=== PATIENT | female | born 1975 | race African-American/Black ===

== ENCOUNTER 2016-10-29 10:46 | Inpatient (IN) | payer MEDICARE, MEDICAID ==
[~2016-10-29] VITALS: Ht 175.3 cm; Wt 111.1 kg
[~2016-10-29 10:46] MED LIST: GLAT20KI SC; Hctz PO; SACC250C PO
[2016-10-29] MEDS ORDERED: SODIUM CHLORIDE 0.9% 1,000 ML IVB ONE (11:01)
[2016-10-29] MEDS ORDERED: ONDANSETRON HCL 4 MG/2 ML VIAL IV ONE (11:15)
[2016-10-29] MEDS ORDERED: KETOROLAC TROMETH 30 MG/ML 1ML VIAL IV ONE (11:15)
[2016-10-29 11:27] LABS: Basophils # (auto) 0 uL; Basophils % (auto) 0.4 % (0.0-2.0); CONDITION Y; Eosinophils # (auto) 0.1 uL; Eosinophils % (auto) 1.3 % (0.0-7.0); Hematocrit 40.8 % (36.0-46.0); Hemoglobin 13.9 g/dL (12.2-16.2); Lymphocytes # (auto) 1.5 uL; Lymphocytes % (auto) 18.8 % (10.0-50.0); Mean Corpuscular Volume 88.4 fL (80.0-100.0); Mean Platelet Volume 8.5 fL (7.4-10.4); Monocytes # (auto) 0.2 uL; Monocytes % (auto) 2.9 % (0.0-12.0); Neutrophils # (auto) 6.1 uL; Neutrophils % (auto) 76.6 % (37.0-80.0); Platelet Count (auto) 294 10^3/uL (140-450); Red Cell Distribution Width 14.6 % (11.6-16.0)
[2016-10-29 11:54] LABS: Albumin 3.1 g/dL (3.4-5.0); BUN/Creatinine Ratio 13.2; Bilirubin, Total 0.3 mg/dL (0.2-1.0); Calcium 8.6 mg/dL (8.5-10.1); Potassium 3.8 mmol/L (3.5-5.1); Total Protein 7.2 g/dL (6.4-8.2)
[2016-10-29 11:59] LABS: Urine Bilirubin Negative (Negative); Urine Color Yellow (Yellow); Urine Glucose Normal (Normal); Urine Ketone Negative (Negative); Urine RBC 11 /hpf (0 - 4); Urine Squamous Epithelial Cell FEW /hpf (<5); Urine Urobilinogen Normal (Negative); Urine WBC Clumps PRESENT /hpf (None Seen)
[2016-10-29 12:01] LABS: Urine Blood 1+ /uL (Negative); Urine Nitrite POSITIVE (Negative)
[2016-10-29] MEDS ORDERED: MORPHINE SULFATE 4 MG/ML SYRG IV ONE (12:45)
[2016-10-29] MEDS ORDERED: ONDANSETRON HCL 4 MG/2 ML VIAL IV PRN (14:00)
[2016-10-29] MEDS: SODIUM CHLORIDE 0.9% 1,000 ML IV SCH (14:00)
[2016-10-29] MEDS ORDERED: cefTRIAXone 1GM/50ML D5W 50 ML IV ONE (14:00)
[2016-10-29] MEDS: HYDROcodone-ACET 5/325MG TAB PO PRN (14:52)
[2016-10-29] MEDS ORDERED: MORPHINE SULF INJ 2 MG/ML SYRINGE 1ML IV PRN (15:00)
[2016-10-29] MEDS: ALPRAZolam 0.25 MG TAB PO SCH ×2 (15:22→21:37)
[2016-10-29 16:21] VITALS: BP 136/92
[2016-10-29 22:24] VITALS: BP 156/72
[2016-10-30] VITALS (7 sets, daily range): BP systolic 129–163; BP diastolic 63–89
[2016-10-30] MEDS: SODIUM CHLORIDE 0.9% 1,000 ML IV SCH ×3 (00:42→22:00)
[2016-10-30 06:55] LABS: Basophils # (auto) 0 uL; Basophils % (auto) 0.3 % (0.0-2.0); Eosinophils # (auto) 0.2 uL; Eosinophils % (auto) 2.8 % (0.0-7.0); Hematocrit 39.9 % (36.0-46.0); Hemoglobin 13.5 g/dL (12.2-16.2); Lymphocytes # (auto) 1.5 uL; Lymphocytes % (auto) 21.2 % (10.0-50.0); Mean Corpuscular Hemoglobin 29.6 pg (28.0-32.0); Mean Corpuscular Hgb Conc. 33.9 g/dL (32.0-36.0); Mean Corpuscular Volume 87.5 fL (80.0-100.0); Mean Platelet Volume 8.8 fL (7.4-10.4); Monocytes # (auto) 0.3 uL; Monocytes % (auto) 3.9 % (0.0-12.0); Neutrophils # (auto) 5.1 uL; Neutrophils % (auto) 71.8 % (37.0-80.0); Platelet Count (auto) 271 10^3/uL (140-450); Red Cell Distribution Width 13.6 % (11.6-16.0); White Blood Cell 7.1 10^3/uL (4.4-10.8)
[2016-10-30 07:17] LABS: Potassium 3.8 mmol/L (3.5-5.1)
[2016-10-30 07:23] LABS: BUN/Creatinine Ratio 16.1; Calcium 8.2 mg/dL (8.5-10.1)
[2016-10-30] MEDS: cefTRIAXone 1GM/50ML D5W 50 ML IV SCH (09:00)
[2016-10-30] MEDS: ALPRAZolam 0.25 MG TAB PO SCH ×2 (10:00→22:00)
[2016-10-30] MEDS: HYDROcodone-ACET 5/325MG TAB PO PRN (18:06)
[2016-10-31 05:00] VITALS: BP 153/76
[2016-10-31] MEDS: SODIUM CHLORIDE 0.9% 1,000 ML IV SCH ×2 (05:41→16:00)
[2016-10-31] MEDS: PHENAZOPYRIDINE HCL 100 MG TAB PO SCH ×2 (07:43→11:58)
[2016-10-31] MEDS: cefTRIAXone 1GM/50ML D5W 50 ML IV SCH (07:44)
[2016-10-31 08:50] VITALS: BP 153/76
[2016-10-31] MEDS: ALPRAZolam 0.25 MG TAB PO SCH (08:56)
[2016-10-31] MEDS ORDERED: LEVO500T21 PO (13:07)
[2016-10-31 14:14] VITALS: BP 153/76
== END 2016-10-31 16:11 | disposition home or self-care (01) | DRG 690 ==
LOC: EDBD 10:46 → ER 10:52 → OVERFLOW 10:53 → TELE-E-ADS 15:59 → EAST 18:33
PROVIDERS: ADMIT Internal Medicine; ATTEND Nurse Practitioner Acute Care
DX: N12 Tubulo-interstitial nephritis, not specified as acute or chronic (principal); G35 Multiple sclerosis; N20.0 Calculus of kidney; J44.9 Chronic obstructive pulmonary disease, unspecified; F12.10 Cannabis abuse, uncomplicated; F41.9 Anxiety disorder, unspecified; G89.29 Other chronic pain; Z79.891 Long term (current) use of opiate analgesic; Z80.3 Family history of malignant neoplasm of breast; Z82.49 Family history of ischemic heart disease and other diseases of the circulatory system; Z83.3 Family history of diabetes mellitus; Z87.440 Personal history of urinary (tract) infections; Z90.49 Acquired absence of other specified parts of digestive tract; Z88.0 Allergy status to penicillin
CPT/HCPCS: 36415; 74176; 80048; 80053; 80307; 81001; 84702; 85025; 87086; 87088; 87186; 94761; 96361; 96365; 96375; J0696; J1885; J2405

== ENCOUNTER 2018-01-08 11:45 | Emergency (ER) | payer MEDICARE, MEDICAID ==
[~2018-01-08] VITALS: Ht 175.3 cm; Wt 99.8 kg
[~2018-01-08 11:45] MED LIST changes: +LEVO500T21 PO
[2018-01-08 12:02] VITALS: BP 143/67
[2018-01-08] MEDS: HYDROcodone-ACET 10/325MG TAB PO ONE (12:44)
[2018-01-08] MEDS: KETOROLAC TROMETH 60MG/2ML VIAL IM ONE (12:44)
== END 2018-01-08 12:55 | disposition home or self-care (01) ==
LOC: ER 11:45 → EDBD 11:45 → ER 12:55
DX: M25.511 Pain in right shoulder (principal); G35 Multiple sclerosis; G89.29 Other chronic pain; F12.10 Cannabis abuse, uncomplicated; Z88.0 Allergy status to penicillin; Z90.49 Acquired absence of other specified parts of digestive tract
CPT/HCPCS: 73030; 96372; 99284; J1885

== ENCOUNTER 2018-01-26 18:33 | Inpatient (IN) | payer MEDICARE, MEDICAID ==
[~2018-01-26] VITALS: Ht 175.3 cm; Wt 105.7 kg
[2018-01-26] MEDS ORDERED: ONDANSETRON HCL 4 MG/2 ML VIAL IV ONE (19:30)
[2018-01-26] MEDS ORDERED: HYDROmorphone HCL 2 MG/ML VL IV ONE (19:30)
[2018-01-26 19:55] LABS: Basophils # (auto) 0 uL; Basophils % (auto) 0.4 % (0.0-2.0); Eosinophils # (auto) 0.2 uL; Eosinophils % (auto) 2.7 % (0.0-7.0); Hematocrit 37.5 % (36.0-46.0); Hemoglobin 12.6 g/dL (12.2-16.2); Lymphocytes # (auto) 1.6 uL; Lymphocytes % (auto) 20.6 % (10.0-50.0); Mean Corpuscular Hemoglobin 29.1 pg (28.0-32.0); Mean Corpuscular Hgb Conc. 33.7 g/dL (32.0-36.0); Mean Corpuscular Volume 86.4 fL (80.0-100.0); Monocytes # (auto) 0.6 uL; Monocytes % (auto) 8.1 % (0.0-12.0); Neutrophils # (auto) 5.4 uL; Neutrophils % (auto) 68.2 % (37.0-80.0); Platelet Count (auto) 230 10^3/uL (140-450); Red Blood Cells 4.34 10^6/uL (4.0-5.20); White Blood Cell 7.8 10^3/uL (4.4-10.8)
[2018-01-26 20:19] LABS: Albumin 2.9 g/dL (3.4-5.0); Calcium 8.4 mg/dL (8.5-10.1); Potassium 3.3 mmol/L (3.5-5.1)
[2018-01-26 20:29] LABS: BUN/Creatinine Ratio 15.7; Bilirubin, Total 0.6 mg/dL (0.2-1.0); CRP High Sensitivity 9.94 mg/dL (< 0.3); Total Protein 6.9 g/dL (6.4-8.2)
[2018-01-26] MEDS ORDERED: CLINDAMYCIN 900MG IV 50 ML IV ONE (21:00)
[2018-01-26] MEDS ORDERED: TEMAZEPAM 15 MG CAP PO PRN (22:45)
[2018-01-26] MEDS ORDERED: POTASSIUM CHL 20 Meq TABLET PO ONE (22:45)
[2018-01-26] MEDS ORDERED: ACETAMINOPHEN 325 MG TAB PO PRN (22:45)
[2018-01-26] MEDS ORDERED: MORPHINE SULFATE 4 MG/ML SYR/VIAL IV PRN (22:45)
[2018-01-27] MEDS ORDERED: ONDANSETRON HCL 4 MG/2 ML VIAL IV ONE (01:45)
[2018-01-27] MEDS ORDERED: HYDROmorphone HCL 2 MG/ML VL IV ONE (01:45)
[2018-01-27] MEDS: HYDROcodone-ACET 5/325MG TAB PO PRN ×2 (05:35→19:51)
[2018-01-27 07:48] LABS: Basophils # (auto) 0 uL; Basophils % (auto) 0.3 % (0.0-2.0); Eosinophils # (auto) 0.2 uL; Hematocrit 38.9 % (36.0-46.0); Lymphocytes # (auto) 1.5 uL; Lymphocytes % (auto) 18.6 % (10.0-50.0); Mean Corpuscular Hemoglobin 29.1 pg (28.0-32.0); Mean Corpuscular Hgb Conc. 33.5 g/dL (32.0-36.0); Mean Corpuscular Volume 86.7 fL (80.0-100.0); Monocytes # (auto) 0.7 uL; Monocytes % (auto) 8.2 % (0.0-12.0); Neutrophils # (auto) 5.8 uL; Neutrophils % (auto) 70.9 % (37.0-80.0); Platelet Count (auto) 243 10^3/uL (140-450); Red Blood Cells 4.48 10^6/uL (4.0-5.20); Red Cell Distribution Width 14.9 % (11.8-14.3); White Blood Cell 8.1 10^3/uL (4.4-10.8)
[2018-01-27 08:12] LABS: Calcium 8.8 mg/dL (8.5-10.1); Potassium 3.5 mmol/L (3.5-5.1)
[2018-01-27 08:15] LABS: BUN/Creatinine Ratio 16.3; Bilirubin, Total 0.8 mg/dL (0.2-1.0); Total Protein 7.4 g/dL (6.4-8.2)
[2018-01-27] MEDS: ENOXAPARIN SOD 40 MG/0.4 ML SYRINGE SC SCH (10:15)
[2018-01-27] MEDS: PARoxetine 20 MG TAB PO SCH (10:15)
[2018-01-27] MEDS: FAMOTIDINE 20 MG TAB PO SCH ×2 (10:15→19:51)
[2018-01-27] MEDS: HCTZ 25 MG TAB PO SCH (10:15)
[2018-01-27] MEDS ORDERED: POTASSIUM CHL 20 Meq TABLET PO ONE (12:15)
[2018-01-27 17:10] VITALS: BP 141/81
[2018-01-27 22:23] VITALS: BP 138/68
[2018-01-28 05:09] VITALS: BP 132/68
[2018-01-28 06:25] LABS: Basophils # (auto) 0 uL; Basophils % (auto) 0.3 % (0.0-2.0); Eosinophils # (auto) 0.2 uL; Eosinophils % (auto) 3.3 % (0.0-7.0); Hematocrit 35.9 % (36.0-46.0); Hemoglobin 12.3 g/dL (12.2-16.2); Lymphocytes # (auto) 1.8 uL; Lymphocytes % (auto) 26.3 % (10.0-50.0); Mean Corpuscular Hemoglobin 29.6 pg (28.0-32.0); Mean Corpuscular Hgb Conc. 34.2 g/dL (32.0-36.0); Mean Corpuscular Volume 86.6 fL (80.0-100.0); Monocytes # (auto) 0.6 uL; Neutrophils # (auto) 4.3 uL; Neutrophils % (auto) 62.1 % (37.0-80.0); Platelet Count (auto) 227 10^3/uL (140-450); Red Blood Cells 4.14 10^6/uL (4.0-5.20); Red Cell Distribution Width 14.7 % (11.8-14.3)
[2018-01-28 06:36] LABS: BUN/Creatinine Ratio 14.9; Calcium 8.7 mg/dL (8.5-10.1); Potassium 4.1 mmol/L (3.5-5.1)
[2018-01-28 07:40] LABS: INR 0.97 (0.9-1.15); Partial Thromboplastin Time 32.2 sec (23.78-33.04); Prothrombin Time 10.4 sec (9.27-12.13)
[2018-01-28 09:02] VITALS: BP 127/61
[2018-01-28] MEDS: HCTZ 25 MG TAB PO SCH (10:00)
[2018-01-28] MEDS: PARoxetine 20 MG TAB PO SCH (10:00)
[2018-01-28] MEDS: ENOXAPARIN SOD 40 MG/0.4 ML SYRINGE SC SCH (10:00)
[2018-01-28] MEDS: FAMOTIDINE 20 MG TAB PO SCH ×2 (10:00→21:37)
[2018-01-28 13:11] VITALS: BP 160/67
[2018-01-28] MEDS ORDERED: CLINDAMYCIN 600MG IV 50 ML IV ONE (14:22)
[2018-01-28] MEDS ORDERED: MEPERIDINE HCL (50 MG/ML) 1 ML VIAL ONE (14:36)
[2018-01-28] MEDS ORDERED: MIDAZOLAM HCL 1MG/1ML-2 ML VIAL ONE (14:36)
[2018-01-28] MEDS ORDERED: LIDOCAINE HCL (LOCAL ANESTH.) 0.5 % 50ML MDV IJ ONE (15:05)
[2018-01-28] MEDS ORDERED: DEXAMETHASONE SOD PHOS 10MG/1ML VIAL INJ ONE (15:17)
[2018-01-28] MEDS ORDERED: PROPOFOL 10 MG/ML 20 ML IV ONE (15:17)
[2018-01-28] MEDS ORDERED: ONDANSETRON HCL 4 MG/2 ML VIAL IV ONE (15:30)
[2018-01-28] MEDS ORDERED: LABETALOL HCL 5 MG/ML 4ML SYRINGE IV PRN (15:30)
[2018-01-28] MEDS ORDERED: HYDROmorphone HCL 2 MG/ML VL IV PRN (15:30)
[2018-01-28] MEDS ORDERED: MIDAZOLAM HCL 1MG/1ML-2 ML VIAL IV PRN (15:30)
[2018-01-28] MEDS ORDERED: ePHEDrine SULFATE 50 MG/ML AMP IV PRN (15:30)
[2018-01-28] MEDS ORDERED: KETOROLAC TROMETH 30 MG/ML 1ML VIAL IV ONE (15:30)
[2018-01-28] MEDS ORDERED: MORPHINE SULFATE 4 MG/ML SYR/VIAL IV PRN (15:30)
[2018-01-28] MEDS ORDERED: MORPHINE SULFATE 4 MG/ML SYR/VIAL IV ONE (16:00)
[2018-01-28] MEDS: CLINDAMYCIN 600MG IV 50 ML IV SCH (21:36)
[2018-01-28 22:08] VITALS: BP 134/70
[2018-01-29 05:00] VITALS: BP 110/69
[2018-01-29] MEDS: CLINDAMYCIN 600MG IV 50 ML IV SCH ×3 (05:12→21:04)
[2018-01-29] MEDS: HYDROcodone-ACET 5/325MG TAB PO PRN ×2 (05:12→18:11)
[2018-01-29 06:58] LABS: Basophils # (auto) 0 uL; Eosinophils # (auto) 0 uL; Hematocrit 35.5 % (36.0-46.0); Hemoglobin 11.8 g/dL (12.2-16.2); Lymphocytes # (auto) 0.5 uL; Mean Corpuscular Hemoglobin 28.9 pg (28.0-32.0); Mean Corpuscular Hgb Conc. 33.2 g/dL (32.0-36.0); Mean Corpuscular Volume 86.9 fL (80.0-100.0); Monocytes # (auto) 0.2 uL; Monocytes % (auto) 3.5 % (0.0-12.0); Neutrophils # (auto) 5.3 uL; Neutrophils % (auto) 87.5 % (37.0-80.0); Platelet Count (auto) 258 10^3/uL (140-450); Red Blood Cells 4.08 10^6/uL (4.0-5.20); Red Cell Distribution Width 14.4 % (11.8-14.3); White Blood Cell 6.1 10^3/uL (4.4-10.8)
[2018-01-29 07:22] LABS: BUN/Creatinine Ratio 26.2; Calcium 8.8 mg/dL (8.5-10.1); Potassium 4.5 mmol/L (3.5-5.1)
[2018-01-29 08:00] VITALS: BP 132/71
[2018-01-29] MEDS: ONDANSETRON HCL 4 MG/2 ML VIAL IV PRN ×2 (08:21→13:34)
[2018-01-29] MEDS: PARoxetine 20 MG TAB PO SCH (10:00)
[2018-01-29 12:00] VITALS: BP 141/63
[2018-01-29] MEDS: HCTZ 25 MG TAB PO SCH (13:36)
[2018-01-29] MEDS: FAMOTIDINE 20 MG TAB PO SCH ×2 (13:40→21:04)
[2018-01-29] MEDS: ENOXAPARIN SOD 40 MG/0.4 ML SYRINGE SC SCH (13:41)
[2018-01-29 16:00] VITALS: BP 145/74
[2018-01-29 21:30] VITALS: BP 146/68
[2018-01-30 05:00] VITALS: BP 111/67
[2018-01-30 05:37] LABS: Basophils # (auto) 0 uL; Basophils % (auto) 0.2 % (0.0-2.0); Eosinophils # (auto) 0.1 uL; Eosinophils % (auto) 1.2 % (0.0-7.0); Hematocrit 32.9 % (36.0-46.0); Hemoglobin 11.2 g/dL (12.2-16.2); Lymphocytes # (auto) 1.8 uL; Lymphocytes % (auto) 23.3 % (10.0-50.0); Mean Corpuscular Hemoglobin 29.7 pg (28.0-32.0); Mean Corpuscular Volume 87.1 fL (80.0-100.0); Monocytes # (auto) 0.6 uL; Monocytes % (auto) 7.1 % (0.0-12.0); Neutrophils # (auto) 5.4 uL; Neutrophils % (auto) 68.2 % (37.0-80.0); Platelet Count (auto) 269 10^3/uL (140-450); Red Blood Cells 3.78 10^6/uL (4.0-5.20); Red Cell Distribution Width 14.9 % (11.8-14.3); White Blood Cell 7.9 10^3/uL (4.4-10.8)
[2018-01-30] MEDS: CLINDAMYCIN 600MG IV 50 ML IV SCH (05:43)
[2018-01-30 05:54] LABS: BUN/Creatinine Ratio 26.9; Calcium 8.7 mg/dL (8.5-10.1); Potassium 4.1 mmol/L (3.5-5.1)
[2018-01-30] MEDS: HYDROcodone-ACET 5/325MG TAB PO PRN (08:58)
[2018-01-30 09:00] VITALS: BP 116/55
[2018-01-30] MEDS: ENOXAPARIN SOD 40 MG/0.4 ML SYRINGE SC SCH (09:45)
[2018-01-30] MEDS: PARoxetine 20 MG TAB PO SCH (09:46)
[2018-01-30] MEDS: HCTZ 25 MG TAB PO SCH (09:46)
[2018-01-30] MEDS: FAMOTIDINE 20 MG TAB PO SCH (09:46)
[2018-01-30 13:00] VITALS: BP 138/71
== END 2018-01-30 14:50 | DRG 493 ==
LOC: EDBD 18:33 → ER 18:33 → OVERFLOW 18:34 → CENTRAL 01-27 16:28
PROVIDERS: ADMIT Nurse Practitioner; ATTEND Internal Medicine
PROC: 0QSG04Z Reposition Right Tibia with Internal Fixation Device, Open Approach (ICD-10-PCS; 2018-01-28)
PROC: 0SSF0ZZ Reposition Right Ankle Joint, Open Approach (ICD-10-PCS; 2018-01-28)
PROC: 0QSJ04Z Reposition Right Fibula with Internal Fixation Device, Open Approach (ICD-10-PCS; principal; 2018-01-28 14:31)
DX: S82.841A Displaced bimalleolar fracture of right lower leg, initial encounter for closed fracture (principal); E44.0 Moderate protein-calorie malnutrition; L03.115 Cellulitis of right lower limb; G35 Multiple sclerosis; I10 Essential (primary) hypertension; E87.6 Hypokalemia; E66.9 Obesity, unspecified; Z68.30 Body mass index [BMI] 30.0-30.9, adult; Z80.3 Family history of malignant neoplasm of breast; Z82.49 Family history of ischemic heart disease and other diseases of the circulatory system; Z83.3 Family history of diabetes mellitus; W18.39XA Other fall on same level, initial encounter; Y93.89 Activity, other specified; Y92.89 Other specified places as the place of occurrence of the external cause; Y99.8 Other external cause status; Z90.49 Acquired absence of other specified parts of digestive tract; Z88.0 Allergy status to penicillin
CPT/HCPCS: 36415; 71045; 73600; 73610; 73630; 76000; 80048; 80053; 84702; 85025; 85610; 85730; 86141; 86850; 86900; 86901; 93971; 96365; 96375; 97110; 97116; 97163; 97530; C1769; G0378; J1100; J1885; J2250; J2405; J2704; J3490

== ENCOUNTER 2022-07-11 21:31 | Emergency (ER) | payer OTHER, MEDICAID ==
[~2022-07-11] VITALS: Ht 175.3 cm; Wt 79.5 kg
[~2022-07-11 21:31] MED LIST changes: -LEVO500T21 PO; -SACC250C PO
[2022-07-11 22:12] VITALS: BP 130/42
[2022-07-11 23:01] LABS: Basophils # (auto) 0 10 ^3/uL (0-0.2); Basophils % (auto) 0.2 % (0.0-2.0); Eosinophils # (auto) 0.1 10 ^3/uL (0-0.8); Eosinophils % (auto) 0.6 % (0.0-7.0); Hematocrit 42.4 % (36.0-46.0); Hemoglobin 14.4 g/dL (12.2-16.2); Lymphocytes # (auto) 1.2 10 ^3/uL (0.4-5.4); Lymphocytes % (auto) 12.5 % (10.0-50.0); Mean Corpuscular Hemoglobin 28.9 pg (28.0-32.0); Mean Corpuscular Volume 85.1 fL (80.0-100.0); Monocytes # (auto) 0.8 10 ^3/uL (0-1.3); Monocytes % (auto) 8.1 % (0.0-12.0); Neutrophils # (auto) 7.4 10 ^3/uL (1.6-8.6); Neutrophils % (auto) 78.6 % (37.0-80.0); Nucleated Red Blood Cells % 0.1 %; Red Blood Cells 4.99 10^6/uL (4.0-5.20); Red Cell Distribution Width 14.7 % (11.8-14.3); White Blood Cell 9.4 10^3/uL (4.4-10.8)
[2022-07-11 23:09] LABS: Albumin 4.2 g/dL (3.4-5.0); BUN/Creatinine Ratio 32.5 (10.0-20.0); Calcium 9.7 mg/dL (8.5-10.1); Potassium 4.9 mmol/L (3.5-5.1)
[2022-07-11 23:13] LABS: Bilirubin, Total 0.7 mg/dL (0.2-1.0); Total Protein 7.6 g/dL (6.4-8.2)
[2022-07-12 03:49] LABS: Urine Amorphous Crystal FEW /hpf (None Seen); Urine Bacteria NONE SEEN /hpf (None Seen); Urine Blood TRACE /uL (Negative); Urine Hyaline Cast FEW /lpf (0 - 2); Urine Mucus FEW (None Seen); Urine Specific Gravity 1.035 (1.001-1.035); Urine WBC 39 /hpf (0 - 5)
[2022-07-12] MEDS ORDERED: PERCOT PO (07:01)
== END 2022-07-12 08:09 | disposition home or self-care (01) ==
LOC: ER 21:31
DX: R60.0 Localized edema (principal); G35 Multiple sclerosis; F12.10 Cannabis abuse, uncomplicated; R06.02 Shortness of breath; Z90.49 Acquired absence of other specified parts of digestive tract; Z88.0 Allergy status to penicillin
CPT/HCPCS: 36415; 70450; 71045; 80053; 81001; 83880; 84484; 85025; 93005